=== PATIENT | male | born 1975 | race Hispanic/Latino ===

== ENCOUNTER 2017-07-12 20:50 | Emergency (ER) | payer SELFPAY ==
[2017-07-12] MEDS ORDERED: Morphine Sulfate 2 MG/ML SYRINGE ONE (22:10)
[2017-07-12] MEDS ORDERED: Ondansetron HCl/PF 4 MG/2 ML Vial ONE (22:10)
[2017-07-12 22:17] LABS: #Basophils 0.1 thou/uL (0.0-0.2); #Eosinphils 0.4 thou/uL (0.0-0.7); #Lymphocytes 2.3 thou/uL (1.20-3.40); #Monocytes 0.6 thou/uL (0.11-0.59); #Neutrophils 3.9 thou/uL (1.40-6.50); %Basophils 1.2 % (0.0-1.0); %Eosinophils 5.6 % (0.0-10.0); %Lymphocytes 31.1 % (21.0-51.0); %Monocytes 8.6 % (0.0-10.0); %Neutrophils 53.5 % (42.0-75.0); Mean Corpuscular HGB CONC 32.9 g/dL (32.0-36.0); Mean Corpuscular Hemoglobin 28.9 pg (27.0-31.0); Mean Corpuscular Volume 87.8 fl (80.0-94.0); Platelet Count 209 thou/uL (130-400); RBC Distribution Width 12.2 % (11.5-14.5); Red Blood Cell (RBC) Count 5.19 mill/uL (4.70-6.10); White Blood Cell (WBC) Count 7.3 thou/uL (4.8-10.8)
[2017-07-12] MEDS ORDERED: Adacel (T-DAP) 0.5 ML VIAL ONE (22:17)
[2017-07-12 22:24] LABS: INR-International Normal Ratio 1.1; PTT 37.5 SEC (22.9-36.1); Prothrombin Time 14.1 SEC (12.0-14.7)
[2017-07-12 22:30] LABS: ALT (SGPT) 45 U/L (8-55); AST (SGOT) 30 U/L (5-34); Albumin 4.1 g/dL (3.5-5.0); Alkaline Phosphatase 141 U/L (40-150); Anion Gap 17 mmol/L (10-20); BUN (Urea Nitrogen) 16 mg/dL (8.9-20.6); Bilirubin, Total 0.4 mg/dL (0.2-1.2); Calc. Creatinine Clearance 0 mL/min (70-130); Carbon Dioxide 20 mmol/L (22-29); Chloride 106 mmol/L (98-107); Estimated GFR-MDRD 59; Globulin 2.5 g/dL (2.4-3.5); Glucose 102 mg/dL (70-105); Potassium 3.9 mmol/L (3.5-5.1); Protein, Total 6.6 g/dL (6.0-8.3); Sodium 139 mmol/L (136-145)
[2017-07-12 22:31] LABS: Troponin I 0.011 ng/mL (< 0.028)
[2017-07-12 22:37] LABS: Bilirubin Negative (Negative); Blood, Urine Negative (Negative); Clarity Clear (Clear); Glucose, Urine (Dipstick) Negative (Negative); Leukocyte Negative (Negative); Nitrite Negative (Negative); Protein, Urine (Dipstick) Negative (Neg-Trace); Specific Gravity, Urine 1.015 (1.005-1.030); Urobilinogen 0.2 mg/dL (0.2-1.0)
[2017-07-13 05:44] LABS: #Basophils 0.1 thou/uL (0.0-0.2); #Eosinphils 0.4 thou/uL (0.0-0.7); #Lymphocytes 2.1 thou/uL (1.20-3.40); #Monocytes 0.8 thou/uL (0.11-0.59); #Neutrophils 5.5 thou/uL (1.40-6.50); %Basophils 1.2 % (0.0-1.0); %Monocytes 8.6 % (0.0-10.0); %Neutrophils 62.2 % (42.0-75.0); Hemoglobin 15.5 g/dL (14.0-18.0); Mean Corpuscular HGB CONC 32.9 g/dL (32.0-36.0); Mean Corpuscular Hemoglobin 28.9 pg (27.0-31.0); Mean Corpuscular Volume 87.8 fl (80.0-94.0); Mean Platelet Volume 11.1 fL (7.4-10.4); Platelet Count 191 thou/uL (130-400); RBC Distribution Width 12.4 % (11.5-14.5); Red Blood Cell (RBC) Count 5.37 mill/uL (4.70-6.10); White Blood Cell (WBC) Count 8.8 thou/uL (4.8-10.8)
[2017-07-13 05:47] LABS: INR-International Normal Ratio 1.1; PTT 40.9 SEC (22.9-36.1); Prothrombin Time 14.6 SEC (12.0-14.7)
== END 2017-07-13 07:05 | disposition home or self-care (01) ==
LOC: NAV ERS 20:50
DX: T63.091A Toxic effect of venom of other snake, accidental (unintentional), initial encounter (principal)
CPT/HCPCS: 80053; 81003; 82550; 84484; 85025; 85384; 85610; 85730; 90471; 90715; 93005; 96374; 96375; J2270; J2405

== ENCOUNTER 2017-07-15 09:08 | Emergency (ER) | payer SELFPAY | END 2017-07-15 09:50 | disposition home or self-care (01) | LOC: NAV ERS 09:08 | DX: S90.32XA Contusion of left foot, initial encounter (principal); T78.40XA Allergy, unspecified, initial encounter; X58.XXXA Exposure to other specified factors, initial encounter | CPT/HCPCS: 99283 ==